=== PATIENT | male | born 1965 | race Two or more races ===

== ENCOUNTER 2021-04-01 15:11 | Emergency (ER) | payer BC ==
[~2021-04-01] VITALS: Ht 175.3 cm; Wt 79.8 kg
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
--- NOTE | 2021-04-01 15:29 | NUR ---
DR LANDON AT BEDSIDE
--- NOTE | 2021-04-01 15:42 | NUR ---
XRAY AT BEDSIDE
[2021-04-01] MEDS ORDERED: ACETAMINOPHEN ES 500 MG TABLET ONE (15:44)
[2021-04-01] MEDS ORDERED: ACETAMINOPHEN ES 500 MG TABLET PO ONE (16:00)
--- NOTE | 2021-04-01 17:32 | NUR ---
Patient discharged to home in stable condition. Written and verbal after care instructions given. Patient verbalizes understanding of instruction.
[2021-04-01 17:34] VITALS: BP 128/87
== END 2021-04-01 17:38 | disposition home or self-care (01) ==
LOC: ER 15:19
DX: R07.89 Other chest pain (principal); Z88.6 Allergy status to analgesic agent; V49.9XXA Car occupant (driver) (passenger) injured in unspecified traffic accident, initial encounter; Y93.89 Activity, other specified; Y92.89 Other specified places as the place of occurrence of the external cause; Y99.8 Other external cause status
CPT/HCPCS: 71100-TC